=== PATIENT | female | born 1985 | race Caucasian/White ===

== ENCOUNTER 2024-06-19 21:39 | Emergency (ER) | payer OTHER ==
[~2024-06-19] VITALS: Ht 157.5 cm; Wt 68.0 kg
[2024-06-19 21:43] VITALS: O2SAT 98
[2024-06-19] MEDS: LEVETIRACETAM 250MG TABLET PO ONE (22:56)
[2024-06-19 23:08] LABS: BASOPHILS % 0.5 % (0.0-2.0); EOSINOPHILS % 0.6 % (0.0-5.0); HEMATOCRIT. 40.3 % (36.0-48.0); HEMOGLOBIN. 13.8 g/dL (12.0-16.0); LYMPHOCYTES % 23.2 % (20.0-50.0); MEAN CORPUSCULAR HEMOGLOBIN 30.9 pg (28.0-32.0); MEAN CORPUSCULAR HGB CONC 34.2 g/dL (31.0-37.0); MEAN CORPUSCULAR VOLUME 90.3 fL (81.0-99.0); MEAN PLATELET VOLUME 8.5 fl (7.4-10.4); MONOCYTES % 9.1 % (2.0-8.0); NEUTROPHILS % 66.6 % (40.0-76.0); PLATELET 314 x1000/uL (130-400); RED BLOOD CELL COUNT 4.46 mill/uL (4.2-5.4); RED CELL DISTRIBUTION WIDTH 13.2 % (11.6-14.6); WHITE BLOOD COUNT 9.2 x1000/uL (4.5-11.0)
[2024-06-19 23:11] LABS: CHLORIDE 107 mEq/L (98-107); POTASSIUM 4.1 mEq/L (3.5-5.1); SODIUM 139 mEq/L (136-145)
[2024-06-19 23:12] LABS: CALCIUM 8.4 mg/dL (8.7-10.4); CARBON DIOXIDE 24 mEq/L (21-32)
[2024-06-19 23:16] LABS: HCG SCREEN NEGATIVE
[2024-06-19 23:17] LABS: CREATININE 0.8 mg/dL (0.6-1.0); GLUCOSE 80 mg/dL (70-105); UREA NITROGEN BLOOD 9 mg/dL (9-23)
[2024-06-19 23:18] LABS: ETHANOL BLOOD < 10 mg/dL (<10)
[2024-06-19] MEDS ORDERED: ACET-2708 MT (23:37)
[2024-06-19 23:45] VITALS: BP 129/73; PULSE 82; RESP 18; TEMP 36.7; O2SAT 98
[2024-06-19] MEDS: ACETAMINOPHEN 325MG TABLET PO ONE (23:45)
== END 2024-06-19 23:50 | disposition home or self-care (01) ==
LOC: ER 21:52
DX: S00.512A Abrasion of oral cavity, initial encounter (principal); G40.909 Epilepsy, unspecified, not intractable, without status epilepticus; Z91.148 Patient's other noncompliance with medication regimen for other reason; X58.XXXA Exposure to other specified factors, initial encounter; Y93.89 Activity, other specified; Y92.89 Other specified places as the place of occurrence of the external cause; Y99.8 Other external cause status
CPT/HCPCS: 80048; 80320; 84703; 85025; 36415; 99283; Z7610 ×3; A4606; G0480